=== PATIENT | male | born 1970 | race Caucasian/White ===

== ENCOUNTER 2018-12-25 06:42 | Emergency (ER) | payer SELFPAY ==
[~2018-12-25] VITALS: Ht 188 cm; Wt 204.1 kg
--- OUTSIDE RECORDS SUMMARY | 2018-12-25 06:44 | XMS REPORT ---
Author Author [facility] Organization [facility] Address Unknown Phone Unavailable Care Team Providers Care Stone Rougher Name Role Phone Unavailable Unavailable Payers Payer Name Policy Type Policy Number Effective Date Expiration Date Problems This patient has no known problems. Allergies, Adverse Reactions, Alerts Allergy Name Allergy Type Status Severity Reaction(s) Onset Date Inactive Date Treating Clinician Comments No Known Allergies DA Active U 2016-09-17 00:00:00 Medications This patient has no known medications.
[2018-12-25] MEDS ORDERED: LEVAQUIN500 MG PO (08:48)
[2018-12-25 09:08] VITALS: BP 149/85
--- NOTE | 2018-12-26 08:06 | Diagnostic Imaging Report ---
EXAMINATION: PA and lateral views of the chest. Images are submitted for interpretation on 12/26/2018 COMPARISON: None CLINICAL HISTORY: Cough DISCUSSION: Lines/tubes: None. Lungs: The lungs are well inflated and clear. There is no evidence of pneumonia or pulmonary edema. Pleura: There is no pleural effusion or pneumothorax. Heart and mediastinum: The cardiomediastinal silhouette is normal. Bones and soft tissues: No acute bony abnormalities. Degenerative changes in the thoracic spine IMPRESSION: No acute cardiopulmonary abnormalities. Signed by: Dr. Rony Gallardo M.D. on 12/26/2018 8:02 AM
== END 2018-12-25 09:10 | disposition home or self-care (01) ==
LOC: ER 06:42
DX: R05 Cough (principal); J02.9 Acute pharyngitis, unspecified
CPT/HCPCS: 71046; 87400; 99283